=== PATIENT | male | born 1990 | race Caucasian/White ===

== ENCOUNTER 2023-05-19 16:11 | Emergency (ER) | payer OTHER, SELFPAY ==
[2023-05-19 16:13] VITALS: BP 120/73; PULSE 63; RESP 16; TEMP 36.3; O2SAT 100; BMI 24.4
--- NOTE | 2023-05-19 17:16 | EX.ED.DYSGE1 ---
HPI <ABDIAZIZ Xie - Last Filed: 05/19/23 17:37> History of Present Illness Chief Complaint: Other, Pain/Inj Narrative Narrative: Patient is a 32-year-old male with no significant medical history. Patient presents to the emergency department after an incident that occurred while working. Patient states he was using a piece of heavy machinery when a hydraulic hose burst it, and the liquid struck him in the left side of his neck. Patient denies any other injury. Patient was concerned because of the speed that the fluid hit his neck. He is here for evaluation. He is asymptomatic at this time. PFS <ABDIAZIZ Xie - Last Filed: 05/19/23 17:37> [facility] Medical History no medical history Allergy/AdvReac Type Severity Reaction Status Date / Time No Known Allergies Allergy Verified 05/19/23 16:12 Surgical History no surgical history Social History Smoking Status: Never smoker ROS <ABDIAZIZ Xie - Last Filed: 05/19/23 17:37> ROS ED ROS Narrative Constitutional: No fever, no chills. HEENT: No sore throat. No neck pain. No loss of vision. No rhinorrhea. Positive for pain to the left side the neck where the fluid struck his skin Cardiovascular: No chest pain. No palpitations. No pedal edema. Respiratory: No cough, no shortness of breath. Abdominal: No abdominal pain. No nausea. No vomiting. Genitourinary: No dysuria. No hematuria. Musculoskeletal: No myalgias. No arthralgias. Neurologic: No headaches. No dizziness. No lightheadedness. Skin: No rash. No change in color. Psychiatric: No depression. No anxiety. EXAM <ABDIAZIZ Xie - Last Filed: 05/19/23 17:37> Physical Exam Narrative Exam Narrative: Afebrile. Vital signs noted. HEENT: Normocephalic. Atraumatic. PERRL, EOMI. Neck soft and supple. No point tenderness or step off. Negative for any redness, no evidence of injury. Cardiovascular: Regular rate and rhythm. No murmurs, rubs, or gallops appreciated. Respiratory: No tachypnea. Lungs clear to auscultation bilaterally. Gastrointestinal: Abdomen soft, nontender, with normoactive bowel sounds. No rebound or guarding. Neurological: Awake. Alert. Nonfocal, nonlateralizing. Skin: No rash. Normal color. No pallor. Musculoskeletal: No pedal edema. Full range of motion extremities. Const Vital Signs: 05/19/23 16:13 05/19/23 16:19 05/19/23 17:50 Temperature 97.3 F L Temperature Source Temporal Pulse Rate 63 60 Respiratory Rate 16 16 Respiratory Effort Normal Respiratory Pattern Normal Blood Pressure 120/73 122/76 H Blood Pressure Mean 88 91 Pulse Ox 100 98 Oxygen Delivery Method Room Air Positive well nourished and well developed General Appearance ED: well developed <Dr. Riki Villavicencio MD - Last Filed: 05/19/23 20:04> Physical Exam Const Vital Signs: 05/19/23 16:13 05/19/23 16:19 05/19/23 17:50 Temperature 97.3 F L Temperature Source Temporal Pulse Rate 63 60 Respiratory Rate 16 16 Respiratory Effort Normal Respiratory Pattern Normal Blood Pressure 120/73 122/76 H Blood Pressure Mean 88 91 Pulse Ox 100 98 Oxygen Delivery Method Room Air MDM <ABDIAZIZ Xie - Last Filed: 05/19/23 17:37> [facility] Treatment and Re-Evaluation :: Patient appears generally well, patient peers nontoxic, vital signs are stable. Presented to the emerged department after being struck by the neck by hydraulic fluid. Differential diagnosis includes chemical burn, contusion, free air. Patient's physical examination is grossly unremarkable. Patient is asymptomatic at this time. At this time, Patient stable for discharge. Patient will be able to return to work <Dr. Riki Villavicencio MD - Last Filed: 05/19/23 20:04> [facility] Narrative Medical decision making narrative: I have personally performed a face to face assessment of the patient and have reviewed the LACI Note. I performed a substantive portion of the visit including all aspects of the following. My cadet findings include: History: Patient got hydraulic fluid sprayed on the left side of his neck at work. He was actually turning the other way. It sprayed from probably 2 to 3 feet away. He states this happened once before and got very red and irritated after 4 hours but he states this is feeling better. His concern was a high-pressure injection injury. But the spray occurred from feet away from him. No neurologic symptoms. Exam: Patient is nontoxic. Speech breathing is normal. No redness or irritation of the neck. I cannot see any puncture even when I use a light with magnifier. No bruit. Medical Decision Making: I do not think this patient needs imaging for high-pressure injection type injury. Although hydro fluid is certainly high and is not uncommonly about 2500 PSI this sprayed from a distance and that pressure would have the markedly reduced in that distance. Discharge Plan Triage Chief Complaint: Other, Pain/Inj ED Midlevel Provider: Flaquito Alford ED Provider: Riki Villavicencio Dx/Rx/DC Orders Clinical Impression: Neck abrasion Instructions: ED Abrasion Primary Care Provider: Care Physician,No Primary Referrals: Care Physician,No Primary [Primary Care Provider] - Clinic,[facility] [Non-Staff] - Activity Restrictions/Additional Instructions: Please follow-up outpatient. Disposition Disposition: Home, Self Care Discharge Date/Time: 05/19/23 17:53
[2023-05-19 17:50] VITALS: BP 122/76; PULSE 60; RESP 16; O2SAT 98
== END 2023-05-19 17:53 | disposition home or self-care (01) ==
PROVIDERS: Emergency Provider Emergency Medicine; Visit Provider Emergency Medicine
DX: S10.91XA Abrasion of unspecified part of neck, initial encounter (principal); Y99.0 Civilian activity done for income or pay; W22.8XXA Striking against or struck by other objects, initial encounter
CPT/HCPCS: 99283